=== PATIENT | female | born 1965 | race Caucasian/White ===

== ENCOUNTER 2018-04-12 21:24 | Emergency (ER) | payer SELFPAY ==
[2018-04-12] MEDS ORDERED: OFLOXACIN 0.3% 5 ML OPTH SOLN OPTH ONE (21:33)
[2018-04-12] MEDS ORDERED: CEPHALEXIN 500 MG CAPSULE PO STA (21:33)
--- NOTE | 2018-04-12 21:39 | Emergency Department Record ---
History of Present Illness - General Chief complaint: Eye Problem Stated complaint: RT EYE PROBLEM Source: Patient Mode of Arrival: Ambulatory Limitations: No limitations - History of Present Illness Initial comments: 52 yo female presents with irritation and redness around her right eye lids. She noted a possible mosquito bite on the upper lid yesterday. Today she has redness and mild swelling of both lids. No vision changes. No drainage. No itching. No contact use. The pain is the skin and not the eye itself. No other current symptoms. chief complaint: Eye redness -: Days(s) (2) Onset Description: Gradual Location: Right eye Place: Home If Injury: None If Pain, Quality: Aching Consistency: Constant Associated Symptoms: None Treatments Prior to Arrival: None - Related Data Previous Rx's Medication Instructions Recorded Cephalexin [Keflex] 500 mg PO TID #21 cap 04/12/18 Allergies Allergy/AdvReac Type Severity Reaction Status Date / Time sulfamethoxazole Allergy SWELLING Verified 04/12/18 21:33 [From Bactrim] OF THE TONGUE trimethoprim [From Bactrim] Allergy SWELLING Verified 04/12/18 21:33 OF THE TONGUE Review of Systems Constitutional: Denies: Chills, Fever, Malaise, Weakness Eyes: Reports: Eye pain (lids). Denies: Eye discharge, Photophobia, Vision change ENT: Denies: Congestion, Ear pain, Epistaxis, Throat pain Respiratory: Denies: Cough, Dyspnea Cardiovascular: Denies: Chest pain Endocrine: Denies: Fatigue Gastrointestinal: Denies: Abdominal pain, Diarrhea, Nausea, Vomiting Genitourinary: Denies: Dysuria, Urgency Musculoskeletal: Denies: Arthralgia, Back pain, Myalgia Skin: Denies: Bruising, Change in color, Rash Neurological: Denies: Headache, Numbness, Weakness Psychiatric: Denies: Anxiety Hematological/Lymphatic: Denies: Blood Clots, Easy bleeding, Easy bruising Physical Exam - General General Appearance: Alert, Oriented x3, Cooperative, No acute distress Limitations: No limitations - Head Head exam: Normal inspection - Eye Eye exam: PERRL, EOMI, Periorbital swelling. negative: Normal appearance, Conjunctival injection, Nystagmus, Periorbital tenderness, Scleral icterus Pupils: Normal accommodation - ENT ENT exam: Normal exam, Mucous membranes moist, Normal orophraynx Ear exam: Normal external inspection Nasal Exam: Normal inspection Mouth exam: Normal external inspection - Neck Neck exam: Normal inspection, Full ROM. negative: Tenderness - Respiratory Respiratory exam: Normal lung sounds bilaterally. negative: Respiratory distress, Rhonchi, Stridor, Wheezes - Extremities Extremities exam: Normal inspection - Neurological Neurological exam: Alert, Oriented X3 - Psychiatric Psychiatric exam: Normal affect, Normal mood - Skin Skin exam: Erythema (eye lids) Course Vital Signs 04/12/18 21:29 Temperature 99.2 F Pulse Rate [ 91 H Pulse Ox Probe] Respiratory 20 Rate Blood Pressure 179/93 [Left Arm] Pulse Ox 97 - Reevaluation(s) Reevaluation #1: 04/12/18 21:37 The redness and irritation are located on the skin of the upper and lower lids. The eye itself seems sparred. She may have a mild local blepharitis/cellulits Disposition Disposition: Discharge Clinical Impression: Blepharitis Cellulitis Qualifiers: Site of cellulitis: unspecified site Qualified Code(s): L03.90 - Cellulitis, unspecified Disposition: Home, Self-Care Condition: (1) Good Instructions: Blepharitis (ED), Cellulitis (ED) Additional Instructions: Continue to apply cold compresses or ice Take the drops every 4 hours Return or be seen if worse or any new concerns Prescriptions: Cephalexin [Keflex] 500 mg PO TID #21 cap Time of Disposition: 21:39 Quality - Quality Measures Quality Measures: N/A - Blood Pressure Screening Does Patient Have Any of the Following: No Blood Pressure Classification: Hypertensive Reading Systolic Measurement: 179 Diastolic Measurement: 93 Screening for High Blood Pressure: < Pre-Hypertensive BP, F/U Documented > [ [id number]] Pre-Hypertensive Follow-up Interventions: Referral to alternative/primary care provider.
== END 2018-04-12 22:02 | disposition home or self-care (01) ==
LOC: ER 21:24
DX: H00.031 Abscess of right upper eyelid (principal); H00.035 Abscess of left lower eyelid; H00.034 Abscess of left upper eyelid; H00.032 Abscess of right lower eyelid; H01.005 Unspecified blepharitis left lower eyelid; H01.004 Unspecified blepharitis left upper eyelid; H01.002 Unspecified blepharitis right lower eyelid; H01.001 Unspecified blepharitis right upper eyelid
CPT/HCPCS: 99282